=== PATIENT | female | born 1985 | race Two or more races ===

== ENCOUNTER → 2023-09-30 | Outpatient (CLI) | payer SELFPAY ==
[~2023-09-30] MED LIST: OMEP40CA4 PO
== END ==
LOC: M WHC 07:48
PROVIDERS: ATTEND Nurse Practitioner Family
DX: R10.2 Pelvic and perineal pain (principal)

== ENCOUNTER → 2025-03-09 | Outpatient (CLI) | payer OTHER | LOC: M WHC 08:52 | PROVIDERS: ATTEND Nurse Practitioner Family | DX: R92.2 Inconclusive mammogram (principal); R92.323 Mammographic fibroglandular density, bilateral breasts; D25.1 Intramural leiomyoma of uterus; N83.201 Unspecified ovarian cyst, right side; N83.8 Other noninflammatory disorders of ovary, fallopian tube and broad ligament ==

== ENCOUNTER → 2025-03-22 | Outpatient (CLI) | payer OTHER | LOC: M WHC 08:14 | PROVIDERS: ATTEND Nurse Practitioner Family | DX: R92.2 Inconclusive mammogram (principal) | CPT/HCPCS: 76642; 77065; G0279 ==

== ENCOUNTER 2025-09-20 08:29 | Emergency (ER) | payer OTHER ==
[~2025-09-20] VITALS: Ht 167.6 cm; Wt 66.4 kg
[2025-09-20 09:34] LABS: BASO # 0.1 10^3/uL (0.0-0.2); BASO % 1.0 % (0.0-1.0); EOS # 0.1 10^3/uL (0.0-0.5); EOS % 1.6 % (0.0-3.0); LYMPH # 2.2 10^3/uL (1.5-5.0); LYMPH % 32.0 % (24.0-44.0); MONO # 0.3 10^3/uL (0.0-0.8); MONO % 4.4 % (2.0-8.0); NEUTROPHILS # 4.1 10^3/uL (1.5-8.5); NEUTROPHILS % 60.6 % (36.0-66.0); PLATELET COUNT, AUTOMATED 287 10^3/uL (150-450)
[2025-09-20 10:03] LABS: HCG, SERUM QUALITATIVE NEGATIVE (NEGATIVE)
[2025-09-20 10:05] LABS: ALT/SGPT 29 U/L (7.0-40); AST/SGOT 22 U/L (<34)
[2025-09-20] MEDS: MAALOX 30 ML SUSP *UDC PO ONE (10:29)
[2025-09-20] MEDS: LIDOCAINE VISCOUS 2% SOLN 15 ML UDC PO ONE (10:30)
[2025-09-20] MEDS: PANTOPRAZOLE 40MG VIAL IV ONE (10:31)
[2025-09-20 10:36] LABS: CK-MB VALUE MASS 2.0 NG/ML (<3.6)
[2025-09-20 10:38] LABS: CPK CREATINE PHOSPHOKINASE 131 U/L (34-145); MB/CK RELATIVE INDEX 1.52 (< OR =4)
[2025-09-20] MEDS ORDERED: ISOVUE-370 76% 100 ML VIAL As Ordered ONE (11:18)
[2025-09-20] MEDS ORDERED: OMEP-173 PO (12:16)
[2025-09-20 12:20] VITALS: BP 117/80; TEMP 98.3; O2SAT 99
== END 2025-09-20 12:30 | disposition home or self-care (01) ==
LOC: M ED 08:29
DX: R10.13 Epigastric pain (principal); K21.9 Gastro-esophageal reflux disease without esophagitis; D25.9 Leiomyoma of uterus, unspecified
CPT/HCPCS: 74177; 80047; 80076; 82550; 82553; 83690; 84484; 84703; 85025; 93005; 93041; 96374; 99285; J2470; Q9967